=== PATIENT | male | born 1975 | race Hispanic/Latino ===

== ENCOUNTER 2016-04-05 23:55 | Emergency (ER) | payer SELFPAY ==
[~2016-04-05] VITALS: Ht 182.9 cm; Wt 75.0 kg
[~2016-04-05 23:55] MED LIST: AMOXICILLIN500 MG; ANTIVERT OR; INDOCIN25 MG PO; TAM75CAP PO
[2016-04-06 00:28] LABS: HEMATOCRIT 43.5 % (39.0-50.0); HEMOGLOBIN 15.3 g/dl (14.0-18.0); IMMATURE GRANULOCYTES 0.5 % (0.0-1.0); MEAN CELL VOLUME 89.9 fL CALC (80.0-100.0); MEAN CORPUSCULAR HGB 31.6 pG CALC (26.0-32.0); MEAN CORPUSCULAR HGB CONC 35.2 g/L CALC (32.0-36.0); NEUT# 2.44 thou/uL (1.82-7.42); RED BLOOD COUNT 4.84 mill/uL (4.70-6.10)
[2016-04-06 00:45] LABS: ALBUMIN 4.6 g/dL (3.2-5.0); ALKALINE PHOSPHATASE 88 u/l (38-126); AMYLASE 90 u/l (30-110); ANION GAP 15 (6-22 (CALC)); BILIRUBIN, TOTAL 0.4 mg/dL (0.0-1.4); BUN 14 mg/dL (9-20); BUN/CREATININE RATIO 14 (12-20 (CALC)); CARBON DIOXIDE 25 mmol/l (22-30); CHLORIDE 102 mmol/l (95-108); GFR > 60 ML/MIN (>=60 (CALC)); GFR FOR AFR.AMER. > 60 ML/MIN (>=60 (CALC)); GLUCOSE 118 mg/dL (75-110); LIPASE 153 u/l (23-300); POTASSIUM 3.5 mmol/l (3.5-5.1); SGOT/AST 37 u/l (17-59); SGPT/ALT 58 u/l (21-72); SODIUM 139 mmol/l (137-146); TOTAL PROTEIN 7.8 g/dL (6.3-8.2)
[2016-04-06] MEDS ORDERED: ULTRAM50 M1 PO (04:20)
[2016-04-06 05:25] VITALS: BP 140/85
== END 2016-04-06 04:38 | disposition home or self-care (01) | DRG 313 ==
LOC: ED 23:55
PROVIDERS: Emergency Medicine
DX: R07.89 Other chest pain (principal); E78.00 Pure hypercholesterolemia, unspecified